=== PATIENT | male | born 1960 | race Caucasian/White ===

== ENCOUNTER 2017-11-20 18:19 | Emergency (ER) | payer MEDICAID ==
--- NOTE | 2017-11-20 18:58 | EDPHY ---
H & P Smoking Status: Current every day smoker Time Seen by Provider: 11/20/17 18:45 HPI/ROS: CHIEF COMPLAINT: "I need help " HISTORY OF PRESENT ILLNESS: Patient is a 57-year-old male who presents emergency department with multiple complaints. States that 10 months ago he sustained a closed head injury. This caused him to "lose everything." He has been homeless for the past 4 months. He has been off of his psychiatric medication. He states he has a longstanding history of depression and is taken amitriptyline for over 20 years but he has not been on this medication recently. He is feeling more distraught recently. He has had thoughts of wanting to sit outside in the cold and let himself freeze. He states he tried this last week but was awoke in by rangers. Patient also complains of left shoulder pain. This is been persistent since his surgery 4 months ago. He has not developed any surrounding redness or swelling. Patient also complains of blisters on his left foot. REVIEW OF SYSTEMS: My complete review of systems is negative except as mentioned in the HPI. ( Francia Kovacs) 0618: No acute events overnight. Patient signed over at 7:00 a.m. shift change to Dr. Terrell Patient pending inpatient psychiatric hospitalization. (Simone Read) Past Medical/Surgical History: Includes depression, traumatic brain injury, seizures Past surgical history: Multiple orthopedic surgeries Social history: The patient is homeless. He denies drugs or alcohol. He chews tobacco. (Francia Kovacs) Physical Exam: 147/112, 94, 17, 96% on room air. 36.6 GENERAL: No acute distress, alert. HEENT: Eyes normal to inspection, normal pharynx, no signs of dehydration. NECK: No thyromegaly, no lymphadenopathy, supple. RESPIRATORY: Clear to auscultation bilaterally, no rales, rhonchi or wheezing. CVS: Regular rate and rhythm, no rubs, murmurs, or gallops. ABDOMEN: Soft, nontender, nondistended, no organomegaly. BACK: Normal to inspection, no CVA tenderness. SKIN: Normal color, no rash, warm, dry. No pallor. EXTREMITIES: The patient has a mild step-off at the superior aspect his left biceps. He states this been present since the surgery. He has mild diffuse shoulder tenderness palpation. No surrounding erythema or warmth. No pedal edema, no calf tenderness, no Homans sign or cords, no joint swelling. Patient' s left foot has a white colored blister at the base of his great toe. This not appear infected. There is no redness or warmth. No streaking up the foot. NEURO/PSYCH: Alert and oriented x3, normal mood and affect, normal motor sensory exam. No obvious cranial nerve deficit. (Francia Kovacs) Constitutional: Initial Vital Signs Temperature (C) 36.6 C 11/20/17 18:21 Heart Rate 94 11/20/17 18:21 Respiratory Rate 17 11/20/17 18:21 Blood Pressure 147/112 H 11/20/17 18:21 O2 Sat (%) 96 11/20/17 18:21 O2 Delivery Mode Room Air Allergies/Adverse Reactions: No Known Allergies Allergy (Unverified 11/20/17 18:20) Home Medications: Medication Instructions Recorded Amitriptyline HCl 11/20/17 Medical Decision Making - Diagnostics Imaging Results: Imaging Impressions Shoulder X-Ray 11/20/17 19:00 Impression: 1. Left AC joint separation. 2. No definite fracture of the left shoulder. ED Course/Re-evaluation: In the emergency department I discussed possible etiologies with the patient. I answered all his questions. Patient was placed on a hold. Psychiatric Services were contacted. Laboratory studies and left shoulder x-ray were ordered. Patient was placed on a mental health hold by me The patient's foot blister appears intact. There is no surrounding erythema. He was instructed on care. I do not feel he needs acute intervention. Left shoulder x-ray: Denies any AC joint separation. It is unclear if this is a new or old injury. No fracture or dislocation. Patient has no tenderness to palpation over the AC joint specifically. Patient's white count is elevated at 12. Patient's chemistry panel is notable for mildly elevated anion gap. Sodium is 146. Alcohol is 62. The patient's tox screen is positive THC. Pt is signed out to Dr. Read at change of shift. Pt awaiting psychiatric evaluation. (Francia Kovacs) [id number]: Patient has been seen evaluated by mental health. They would like to pursue inpatient psychiatric hospitalization. (Simone Read) 8:45 a.m.-this patient has been accepted to [facility]. EMTALA form completed. (Julia Terrell) Differential Diagnosis: My differential includes but is not limited to depression, suicidal ideation, medication reaction, intoxication, shoulder strain, shoulder sprain, fracture, septic joint, foot blisters, foot infection (Francia Kovacs) - Data Points Laboratory Results: Laboratory Results 11/20/17 19:27 11/20/17 19:27 11/21/17 11/21/17 Unknown 01:18 Group A Strep Screen NEGATIVE (NEGATIVE) Group A Strep DNA Pending Departure - Departure Disposition: Other Psych, Not [facility] Clinical Impression: Depression Qualifiers: Depression Type: unspecified Qualified Code(s): F32.9 - Major depressive disorder, single episode, unspecified Blister of foot, left Qualifiers: Encounter type: initial encounter Qualified Code(s): S90.822A - Blister ( nonthermal), left foot, initial encounter Shoulder pain, acute Qualifiers: Laterality: left Qualified Code(s): M25.512 - Pain in left shoulder Condition: Good Referrals: NONE *PRIMARY CARE P,. [Primary Care Provider] - As per Instructions
[2017-11-20 19:50] LABS: PLATELET COUNT 196 10^3/uL (150-400)
[2017-11-21] MEDS ORDERED: ACETAMINOPHEN 325 MG TAB PO ONE (08:48)
[2017-11-21 09:44] LABS: GROUP A STREP DNA (THROAT) POSITIVE (NEGATIVE)
[2017-11-21 10:51] VITALS: BP 141/94; PULSE 91; RESP 19; TEMP 98.1; O2SAT 92
== END 2017-11-21 10:51 ==
DX: F32.9 Major depressive disorder, single episode, unspecified (principal); S90.822A Blister (nonthermal), left foot, initial encounter; S49.92XA Unspecified injury of left shoulder and upper arm, initial encounter; F17.220 Nicotine dependence, chewing tobacco, uncomplicated; X31.XXXA Exposure to excessive natural cold, initial encounter; Y99.8 Other external cause status; Y93.89 Activity, other specified
CPT/HCPCS: 80305; G0480